=== PATIENT | female | born 1950 | race Caucasian/White ===

== ENCOUNTER 2020-09-21 09:59 | Outpatient (CLI) | payer MEDICARE | END 2020-09-21 10:00 | disposition home or self-care (01) | LOC: CT 09:59 | PROVIDERS: ATTEND Internal Medicine | DX: Z12.2 Encounter for screening for malignant neoplasm of respiratory organs (principal); F17.210 Nicotine dependence, cigarettes, uncomplicated; J44.9 Chronic obstructive pulmonary disease, unspecified | CPT/HCPCS: 71271 ==

== ENCOUNTER 2021-10-24 12:07 | Outpatient (CLI) | payer MEDICARE | END 2021-10-24 12:08 | disposition home or self-care (01) | LOC: CSHCT 12:07 | PROVIDERS: ATTEND Internal Medicine | DX: Z12.31 Encounter for screening mammogram for malignant neoplasm of breast (principal); Z12.2 Encounter for screening for malignant neoplasm of respiratory organs; Z87.891 Personal history of nicotine dependence; J43.9 Emphysema, unspecified; Z98.82 Breast implant status | CPT/HCPCS: 71271; 77063; 77067 ==

== ENCOUNTER 2022-04-01 14:11 | Outpatient (CLI) | payer MEDICARE | END 2022-04-01 14:12 | disposition home or self-care (01) | LOC: CSHMAMMO 14:11 | PROVIDERS: ATTEND Internal Medicine | DX: Z13.820 Encounter for screening for osteoporosis (principal); Z78.0 Asymptomatic menopausal state; M85.89 Other specified disorders of bone density and structure, multiple sites | CPT/HCPCS: 77080 ==

== ENCOUNTER 2022-06-12 10:35 | Observation (INO) | payer MEDICARE ==
[2022-06-12 10:59] LABS: #Eosinphils 0.2 10x3/uL (0.0-0.5); #Monocytes 0.6 10x3/uL (0.0-1.1); #Neutrophils 4.2 10x3/uL (1.5-8.4); %Basophils 0.6 % (0.0-2.0); %Eosinophils 2.6 % (0.0-6.0); %Neutrophils 61.7 % (40.0-75.0); Hemoglobin 12.3 g/dL (12.0-15.5); Mean Corpuscular HGB CONC 33.9 g/dL (32.0-36.0); Mean Corpuscular Hemoglobin 32.3 pg (27.0-33.0); Mean Corpuscular Volume 95.3 fl (81.6-98.3); Mean Platelet Volume 9.7 fl (7.4-10.4); Platelet Count 205 10x3/uL (150-450); RBC Distribution Width 13.2 % (11.5-14.5); Red Blood Cell (RBC) Count 3.81 10x6/uL (3.90-5.03); White Blood Cell (WBC) Count 6.9 10x3/uL (3.5-10.5)
[2022-06-12 11:18] LABS: ALT (SGPT) 9 U/L (8-55); AST (SGOT) 15 U/L (5-34); Albumin 3.9 g/dL (3.4-4.8); Alkaline Phosphatase 81 U/L (40-110); Anion Gap 12 mmol/L (10-20); BUN (Urea Nitrogen) 18 mg/dL (9.8-20.1); Bilirubin, Total 0.7 mg/dL (0.2-1.2); CK (CPK) 80 U/L (29-168); Calc. Creatinine Clearance 0 mL/min (70-130); Calcium 10.2 mg/dL (7.8-10.44); Carbon Dioxide 29 mmol/L (23-31); Chloride 102 mmol/L (98-107); Estimated GFR 58; Globulin 2.5 g/dL (2.4-3.5); Glucose 91 mg/dL (83-110); Potassium 3.3 mmol/L (3.5-5.1); Protein, Total 6.4 g/dL (5.8-8.1); Sodium 140 mmol/L (136-145)
[2022-06-12 12:12] LABS: Bilirubin Neg (Negative); Blood, Urine 25 (Negative); Clarity Slightly Cloudy (Clear); Glucose, Urine (Dipstick) Normal (Negative); Ketone, Urine Negative (Negative); Leukocyte 500 (Negative); Nitrite Positive (Negative); Protein, Urine (Dipstick) 15 mg/dl (Neg-Trace); Specific Gravity, Urine 1.015 (1.005-1.030); Urobilinogen Normal mg/dL (Less than 2); pH, Urine 6.5 (5.0-9.0)
[2022-06-12 12:28] LABS: RBC/HPF 0-3 HPF (0-3); WBC/HPF 21-50 HPF (0-3)
[2022-06-12 12:29] LABS: Bacteria/HPF 3+ HPF (None Seen); Squamous Epithelial 0-3 HPF (0-3)
[2022-06-12] MEDS ORDERED: Aspirin Chewable 81 MG TAB ONE (13:13)
[2022-06-12] MEDS ORDERED: cefTRIAXone\\ROCEPHIN 1 GM VIAL ONE (13:14)
[2022-06-12 13:34] LABS: SARS-CoV-2 NAA Rapid Test DETECTED (NotDetected)
[2022-06-12 14:08] LABS: Troponin I 0.017 ng/mL (< 0.028)
[2022-06-12] MEDS ORDERED: Acetaminophen 325 MG TAB PO PRN (14:52)
[2022-06-12] MEDS ORDERED: hydrALAZINE 20 MG/ML VIAL SLOW IVP PRN (14:52)
[2022-06-12] MEDS ORDERED: Acetaminophen 650 MG Suppository PR PRN (14:52)
[2022-06-12] MEDS ORDERED: Ondansetron ODT 4 MG TAB PO PRN (14:52)
[2022-06-12] MEDS ORDERED: Ondansetron PF 4 MG/2 ML Vial IVP PRN (14:52)
[2022-06-12 16:30] VITALS: BMI 20.5
[2022-06-12 17:09] LABS: Troponin I 0.014 ng/mL (< 0.028)
[2022-06-12] MEDS: Atorvastatin Calcium 40 MG TAB PO SCH (21:06)
[2022-06-13 04:48] LABS: #Eosinphils 0.2 10x3/uL (0.0-0.5); #Monocytes 0.7 10x3/uL (0.0-1.1); #Neutrophils 5.4 10x3/uL (1.5-8.4); %Basophils 0.5 % (0.0-2.0); %Eosinophils 2.9 % (0.0-6.0); %Lymphocytes 21.9 % (18.0-47.0); %Monocytes 8.1 % (0.0-10.0); %Neutrophils 66.4 % (40.0-75.0); Hemoglobin 11.9 g/dL (12.0-15.5); Mean Corpuscular HGB CONC 34.6 g/dL (32.0-36.0); Mean Corpuscular Hemoglobin 32.4 pg (27.0-33.0); Mean Corpuscular Volume 93.7 fl (81.6-98.3); Mean Platelet Volume 9.6 fl (7.4-10.4); Platelet Count 205 10x3/uL (150-450); RBC Distribution Width 12.7 % (11.5-14.5); Red Blood Cell (RBC) Count 3.67 10x6/uL (3.90-5.03); White Blood Cell (WBC) Count 8.2 10x3/uL (3.5-10.5)
[2022-06-13 05:10] LABS: Anion Gap 14 mmol/L (10-20); BUN (Urea Nitrogen) 18 mg/dL (9.8-20.1); Calc. Creatinine Clearance 51 mL/min (70-130); Calcium 9.2 mg/dL (7.8-10.44); Carbon Dioxide 27 mmol/L (23-31); Cardiac Risk 2.6 (Less than 4.5); Chloride 104 mmol/L (98-107); Cholesterol 113 mg/dl (< 200 Desired); Estimated GFR 72; Glucose 85 mg/dL (83-110); HDL Cholesterol 44 mg/dL (>60 Neg Risk); LDL Cholesterol, Calculated 55 mg/dL; Potassium 3.7 mmol/L (3.5-5.1); Sodium 141 mmol/L (136-145); Triglycerides 72 mg/dL (Less than 150)
[2022-06-13] MEDS ORDERED: ALPRAZolam 0.5 MG TAB PO SCH (09:00)
[2022-06-13] MEDS ORDERED: FLU VACC QS2022-23(65YR UP)/PF 240 MCG/0.7 ML SYRINGE IM ONE (09:00)
[2022-06-13] MEDS: Levothyroxine Sodium 25 MCG TAB PO SCH (09:53)
[2022-06-13] MEDS: DULoxetine 30 MG CAP PO SCH (09:53)
[2022-06-13] MEDS: Aspirin 81 mg Enteric Coated Tablet PO SCH (09:53)
[2022-06-13] MEDS: Atorvastatin Calcium 40 MG TAB PO SCH ×2 (09:53→21:03)
[2022-06-13] MEDS: Lisinopril 20 MG TAB PO SCH (09:53)
[2022-06-13] MEDS ORDERED: cefTRIAXone\\ROCEPHIN 1 GM in Sodium Chloride 0.9% 100 ML IVPB SCH (13:00)
[2022-06-13] MEDS: ALPRAZolam 0.5 MG TAB PO SCH ×2 (16:17→21:03)
[2022-06-14 04:29] LABS: #Eosinphils 0.3 10x3/uL (0.0-0.5); #Monocytes 0.7 10x3/uL (0.0-1.1); #Neutrophils 2.7 10x3/uL (1.5-8.4); %Basophils 0.7 % (0.0-2.0); %Eosinophils 4.6 % (0.0-6.0); %Lymphocytes 38.5 % (18.0-47.0); %Monocytes 11.5 % (0.0-10.0); %Neutrophils 44.5 % (40.0-75.0); Hemoglobin 12.1 g/dL (12.0-15.5); Mean Corpuscular HGB CONC 34.1 g/dL (32.0-36.0); Mean Corpuscular Hemoglobin 31.8 pg (27.0-33.0); Mean Corpuscular Volume 93.2 fl (81.6-98.3); Mean Platelet Volume 9.7 fl (7.4-10.4); Platelet Count 207 10x3/uL (150-450); RBC Distribution Width 12.7 % (11.5-14.5); Red Blood Cell (RBC) Count 3.81 10x6/uL (3.90-5.03); White Blood Cell (WBC) Count 6.1 10x3/uL (3.5-10.5)
[2022-06-14 04:41] LABS: Anion Gap 13 mmol/L (10-20); BUN (Urea Nitrogen) 17 mg/dL (9.8-20.1); Calc. Creatinine Clearance 47 mL/min (70-130); Carbon Dioxide 28 mmol/L (23-31); Chloride 105 mmol/L (98-107); Estimated GFR 66; Glucose 93 mg/dL (83-110); Potassium 3.9 mmol/L (3.5-5.1); Sodium 142 mmol/L (136-145)
[2022-06-14] MEDS: DULoxetine 30 MG CAP PO SCH (08:41)
[2022-06-14] MEDS: Lisinopril 20 MG TAB PO SCH (08:42)
[2022-06-14] MEDS: ALPRAZolam 0.5 MG TAB PO SCH (08:42)
[2022-06-14] MEDS: Atorvastatin Calcium 40 MG TAB PO SCH (08:42)
[2022-06-14] MEDS: Aspirin 81 mg Enteric Coated Tablet PO SCH (08:42)
[2022-06-14] MEDS: Levothyroxine Sodium 25 MCG TAB PO SCH (08:42)
[2022-06-14 08:55] VITALS: BP 157/83; TEMP 97.4
== END 2022-06-14 12:15 | disposition home or self-care (01) ==
LOC: CSHERS 10:35 → CSHTELE 15:20
PROVIDERS: ADMIT Internal Medicine; ATTEND Internal Medicine
DX: R42 Dizziness and giddiness (principal); U07.1 COVID-19; I10 Essential (primary) hypertension; E78.5 Hyperlipidemia, unspecified; N39.0 Urinary tract infection, site not specified; F17.210 Nicotine dependence, cigarettes, uncomplicated; I65.29 Occlusion and stenosis of unspecified carotid artery; Z79.899 Other long term (current) drug therapy; Z86.73 Personal history of transient ischemic attack (TIA), and cerebral infarction without residual deficits
CPT/HCPCS: 70450; 71045; 80048 ×2; 80061; 82550; 82962; 84484 ×2; 85025 ×2; 93005; 93306; 93880; 96365; 99285; U0002; 36415; 36416; 80053; 81003; 81015; 84443; 96376; G0378; J0696; J3490

== ENCOUNTER 2022-07-12 13:35 | Outpatient (CLI) | payer MEDICARE | END 2022-07-12 13:36 | disposition home or self-care (01) | LOC: CSHCT 13:35 | PROVIDERS: ATTEND Internal Medicine | DX: R35.0 Frequency of micturition (principal); R10.9 Unspecified abdominal pain; K57.30 Diverticulosis of large intestine without perforation or abscess without bleeding; K59.00 Constipation, unspecified; I70.90 Unspecified atherosclerosis; Z90.710 Acquired absence of both cervix and uterus | CPT/HCPCS: 74176 ==

== ENCOUNTER 2023-07-10 14:00 | Outpatient (CLI) | payer MEDICARE ==
[2023-07-10] MEDS ORDERED: Iopamidol 370 76% 100 ML VIAL ONE (14:10)
== END 2023-07-10 14:01 | disposition home or self-care (01) ==
LOC: CSHCT 14:00
PROVIDERS: ATTEND Family Medicine
DX: R55 Syncope and collapse (principal); I65.23 Occlusion and stenosis of bilateral carotid arteries; Z98.890 Other specified postprocedural states; G93.89 Other specified disorders of brain; I67.89 Other cerebrovascular disease
CPT/HCPCS: 70496; 82565; Q9967